=== PATIENT | male | born 1955 | race Caucasian/White ===

== ENCOUNTER 2018-03-08 22:33 | Emergency (ER) | payer OTHER ==
--- NOTE | 2018-03-08 23:30 | EDM.PDOC ---
ED HPI GENERAL MEDICAL PROBLEM - General Chief Complaint: Neurological Problem Stated Complaint: CONFUSION Time Seen by Provider: 03/08/18 23:00 Source of Information: Reports: Patient, Family History Limitations: Reports: No Limitations - History of Present Illness INITIAL COMMENTS - FREE TEXT/NARRATIVE: Brandan was seen at [facility] ED this late pm because of an event at home this evening shortly after retiring to bed. He became restless, agitated, got up to go to the window without appearing to know what or why he was doing this. His answers to simple questions were puzzling, without jibberish or dysarthria. There was no facial asymmetry, lack of coordination, aphasia, or observable weakness. Sxs cleared in about 30 minutes. Upon arrival at the ED, his VSS, no focal neurologic deficits, but some memory impairment to recent events this evening. He was started on Ranitidine 150 mg tabs and Sulfacrate 1 gm tabs earlier today for epigastric pains by PCP. He was taking Prilosec, NSAIDs and Gabapentin for chronic back pain which were stopped today. - Related Data Allergies Allergy/AdvReac Type Severity Reaction Status Date / Time No Known Allergies Allergy Verified 03/08/18 22:55 Home Meds: Home Meds Simvastatin [Zocor] 40 mg PO BEDTIME 06/09/14 [History] Ranitidine HCl [Ranitidine] 150 mg PO BID 03/08/18 [History] Sucralfate 1 gm PO QID 03/08/18 [History] Past Medical History Musculoskeletal History: Reports: Back Pain, Chronic ED ROS GENERAL - Review of Systems Review Of Systems: See Below Constitutional: Reports: No Symptoms HEENT: Reports: No Symptoms Respiratory: Reports: No Symptoms Cardiovascular: Reports: No Symptoms Endocrine: Reports: No Symptoms GI/Abdominal: Reports: No Symptoms : Reports: No Symptoms Musculoskeletal: Reports: Back Pain Skin: Reports: No Symptoms Neurological: Reports: Confusion Psychiatric: Reports: Confusion Hematologic/Lymphatic: Reports: No Symptoms Immunologic: Reports: No Symptoms - Physical Exam Exam: See Below Exam Limited By: No Limitations General Appearance: Alert, WD/WN, No Apparent Distress Eye Exam: Bilateral Eye: EOMI, Normal Inspection, PERRL Ears: Normal External Exam Nose: Normal Inspection Throat/Mouth: Normal Inspection, Normal Lips, Normal Teeth, Normal Gums, Normal Oropharynx, Normal Voice, No Airway Compromise Head Exam: Normocephalic Neck: Normal Inspection, Supple, Full Range of Motion Respiratory/Chest: No Respiratory Distress, Lungs Clear, Normal Breath Sounds, No Accessory Muscle Use Cardiovascular: Normal Peripheral Pulses, Regular Rate, Rhythm, No Murmur GI/Abdominal: Normal Bowel Sounds, Soft, No Organomegaly, No Distention, No Mass , Tender (epigastrium) (Male) Exam: Deferred Rectal (Males) Exam: Deferred Neuro Exam (Abbreviated): Alert, Oriented, CN II-XII Intact, Normal Cognition, Normal Gait, No Motor/Sensory Deficits, Memory Loss Recent Events (impaired to recent events this evening) Back Exam: Normal Inspection Extremities: Normal Inspection, Normal Range of Motion Psychiatric: Normal Affect, Normal Mood Skin Exam: Warm, Dry, Intact, Normal Color Course - Vital Signs Text/Narrative:: Brandan remained stable at the [facility] ED. No meds were administered. Screening labwork and ekg were baseline. Last Recorded V/S: Last Vital Signs Temp Pulse 60 03/08/18 23:30 Resp 16 03/08/18 22:35 BP 161/92 H 03/08/18 23:30 Pulse Ox 98 03/08/18 22:35 - Orders/Labs/Meds Orders: Active Orders 24 hr Category Date Time Status EKG Documentation Completion [RC] ASDIRECTED Care 03/08/18 23:23 Ordered Head wo Cont [CT] Routine Exams 03/09/18 12:00 Ordered EKG 12 Lead [EK] Routine Ther 03/08/18 23:22 Ordered Labs: Laboratory Tests 03/08/18 03/08/18 03/08/18 Range/Units 23:35 23:35 23:35 WBC 6.1 (4.5-12.0) X10-3/uL RBC 4.51 (4.30-5.75) x10(6)uL Hgb 12.8 (11.5-15.5) g/dL Hct 38.8 (30.0-51.3) % MCV 85.9 (80-96) fL MCH 28.3 (27.7-33.6) pg MCHC 33.0 (32.2-35.4) g/dL RDW 13.4 (11.5-15.5) % Plt Count 244 (125-369) X10(3)uL MPV 8.4 (7.4-10.4) fL Neut % (Auto) 54.4 (46-82) % Lymph % (Auto) 33.1 (13-37) % [place] % (Auto) 7.2 (4-12) % Eos % (Auto) 4 (1.0-5.0) % Baso % (Auto) 1 (0-2) % Neut # (Auto) 3.4 (1.6-8.3) # Lymph # (Auto) 2.0 (0.6-5.0) # [place] # (Auto) 0.4 (0.0-1.3) # Eos # (Auto) 0.2 (0.0-0.8) # Baso # (Auto) 0.1 (0.0-0.2) # Sodium 136 (135-145) mmol/L Potassium 3.7 (3.5-5.3) mmol/L Chloride 102 (100-110) mmol/L Carbon Dioxide 30 (21-32) mmol/L BUN 18 (7-18) mg/dL Creatinine 1.2 (0.70-1.30) mg/dL Est Cr Clr Drug Dosing 72.13 mL/min Estimated GFR (MDRD) > 60 (>60) BUN/Creatinine Ratio 15.0 (9-20) Glucose 124 H (80-116) mg/dL Calcium 9.2 (8.6-10.2) mg/dL Total Bilirubin 0.6 (0.1-1.3) mg/dL AST 23 (5-25) IU/L ALT 35 (12-36) U/L Alkaline Phosphatase 99 (56-112) IU/L Troponin I < 0.017 L (<0.017-0.056) ng/mL C-Reactive Protein < 0.2 L (0.5-0.9) mg/dL Total Protein 7.7 (6.0-8.0) g/dL Albumin 3.7 (3.2-4.6) g/dL Globulin 4.0 g/dL Albumin/Globulin Ratio 0.9 Departure - Departure Time of Disposition: 00:08 Disposition: Home, Self-Care 01 Condition: Good Clinical Impression: Confusional state - Discharge Information *PRESCRIPTION DRUG MONITORING PROGRAM REVIEWED*: Not Applicable *COPY OF PRESCRIPTION DRUG MONITORING REPORT IN PATIENT FARNAZ: Not Applicable Referrals: Shanna Maza, [employer] [Primary Care Provider] - Forms: ED Department Discharge - Problem List & Annotations (1) Confusional state SNOMED Code(s): 148519504 Code(s): F44.89 - OTHER DISSOCIATIVE AND CONVERSION DISORDERS Status: Acute Current Visit: Yes Annotation/Comment:: Brandan remains stable at this time. He will be on medical leave tomorrow, and not drive a car until medically cleared. He will stop Ranitidine, continue Sulfacrate, resume Prilosec 20 mg bid , and begin ASA 325 mg qd. He will return to the ED tomorrow for a Head CT noncontrast. - Problem List Review Problem List Initiated/Reviewed/Updated: Yes - My Orders Last 24 Hours: My Active Orders 03/08/18 23:22 EKG 12 Lead [EK] Routine 03/08/18 23:23 EKG Documentation Completion [RC] ASDIRECTED 03/09/18 12:00 Head wo Cont [CT] Routine - Assessment/Plan Last 24 Hours: My Active Orders 03/08/18 23:22 EKG 12 Lead [EK] Routine 03/08/18 23:23 EKG Documentation Completion [RC] ASDIRECTED 03/09/18 12:00 Head wo Cont [CT] Routine Plan: Follow up tomorrow in ED.
[2018-03-09 00:09] VITALS: BP 168/97
== END 2018-03-09 00:23 | disposition home or self-care (01) ==
LOC: FB.ED 22:33
DX: R41.0 Disorientation, unspecified (principal)
CPT/HCPCS: 36415; 80053; 84484; 85025; 86140; 93005; 99285

== ENCOUNTER 2019-05-12 06:36 | Observation (INO) | payer OTHER ==
--- NOTE | 2019-05-12 07:15 | EDM.PDOC ---
ED HPI GENERAL MEDICAL PROBLEM - General Chief Complaint: Gastrointestinal Problem Stated Complaint: bleeding per rectum since yesterday Time Seen by Provider: 05/12/19 07:05 Source of Information: Reports: Patient, Family History Limitations: Reports: No Limitations - History of Present Illness INITIAL COMMENTS - FREE TEXT/NARRATIVE: pt states he started that he started bleeding since yesterday,1/2 a cup 4 times yesterday and same 3times since 4am today has abd pain in the left LLQ. No dizziness , no headache . has had colonoscopy and has once scheduled for May states had no opolyps or diverticulosis Onset: Gradual Onset Date: 05/11/19 Duration: Getting Worse Location: Reports: Abdomen Quality: Reports: Ache, Dull, Other (pain in the rectal area) Severity: Moderate Improves with: Reports: None Worsens with: Reports: None Associated Symptoms: Reports: No Other Symptoms - Related Data Allergies Allergy/AdvReac Type Severity Reaction Status Date / Time .cantalope Allergy Difficulty Uncoded 05/12/19 07:08 Swallowing Home Meds: Home Meds Simvastatin [Zocor] 40 mg PO BEDTIME 06/09/14 [History] Aspirin [Adult Low Dose Aspirin EC] 81 mg PO DAILY 05/12/19 [History] Methocarbamol 1 tab PO TID PRN 05/12/19 [History] Omeprazole 40 mg PO DAILY 05/12/19 [History] Past Medical History Cardiovascular History: Reports: High Cholesterol Gastrointestinal History: Reports: Diverticulosis, GERD Musculoskeletal History: Reports: Back Pain, Chronic - Past Surgical History GI Surgical History: Reports: Cholecystectomy, Colonoscopy, EGD Social & Family History - Tobacco Use Smoking Status *Q: Never Smoker - Caffeine Use Caffeine Use: Reports: None - Recreational Drug Use Recreational Drug Use: No ED ROS GENERAL - Review of Systems Review Of Systems: See Below Constitutional: Reports: Malaise, Weakness HEENT: Reports: No Symptoms Respiratory: Reports: No Symptoms Cardiovascular: Reports: No Symptoms Endocrine: Reports: No Symptoms GI/Abdominal: Reports: Abdominal Pain, Distension : Reports: No Symptoms Musculoskeletal: Reports: No Symptoms Skin: Reports: No Symptoms ED EXAM, GI/ABD - Physical Exam Exam: See Below Exam Limited By: No Limitations General Appearance: Alert, WD/WN, No Apparent Distress Eyes: Bilateral: Abnormal EOM Ears: Normal External Exam Nose: Normal Inspection Throat/Mouth: Normal Inspection Neck: Supple, Non-Tender Respiratory/Chest: Lungs Clear Cardiovascular: Regular Rate, Rhythm GI/Abdominal Exam: Soft, Distended, Tender (in the LLQ), Abnormal Bowel Sounds ( hyperactive). No: Guarding, Rigid, Hernia, Mass, Hepatomegaly, Splenomegaly Rectal (Males) Exam: Heme + Stool, Hemorrhoids Back Exam: Full Range of Motion Extremities: Normal Range of Motion Neurological: Alert, Oriented, CN II-XII Intact Psychiatric: Normal Affect Skin Exam: Warm Course - Vital Signs Text/Narrative:: pt has been stable in ER had BM once ( bm not seen ) but pt states it was still bloody still has pain in the LLQ, no Nausea or vomiting Seen by surgeon and plan is to admit for observation Last Recorded V/S: Last Vital Signs Temp 36.7 C 05/12/19 08:34 Pulse 58 L 05/12/19 08:34 Resp 18 05/12/19 08:34 BP 137/83 05/12/19 08:34 Pulse Ox 99 05/12/19 08:34 - Orders/Labs/Meds Orders: Active Orders 24 hr Category Date Time Status Patient Status Manage Transfer [TRANSFER] Routine ADT 05/12/19 09:56 Active Patient Status [ADT] Routine ADT 05/12/19 09:59 Active Bedrest Bathroom Privileges [RC] ASDIRECTED Care 05/12/19 09:59 Active Intake and Output [RC] QSHIFT Care 05/12/19 10:00 Active Notify Provider Consults [RC] ASDIRECTED Care 05/12/19 07:31 Active Oxygen Therapy [RC] PRN Care 05/12/19 09:59 Active VTE/DVT Education [RC] DAILY Care 05/12/19 09:59 Active Vital Signs [RC] Q4H Care 05/12/19 09:59 Active Consult to Physician [CONS] Stat Cons 05/12/19 07:29 Ordered Clear Liquid Diet [DIET] Diet 05/12/19 Lunch Ordered Abdomen Pelvis w Cont [CT] Stat Exams 05/12/19 08:58 Ordered BASIC METABOLIC PANEL,BMP [CHEM] AM Lab 05/13/19 05:11 Ordered CBC WITH AUTO DIFF [HEME] AM Lab 05/13/19 05:11 Ordered Ondansetron [Zofran] Med 05/12/19 09:59 Active 4 mg IV Q6H PRN Sodium Chloride 0.9% [Normal Saline] 1,000 ml Med 05/12/19 08:45 Active IV ASDIRECTED Sodium Chloride 0.9% [Saline Flush] Med 05/12/19 07:20 Active 10 ml FLUSH ASDIRECTED PRN Antiembolic Hose [OM.PC] Per Unit Routine Oth 05/12/19 10:02 Ordered IV Fluid and Blood Warmer [OM.PC] Routine Oth 05/12/19 07:20 Ordered Peripheral IV Insertion Adult [OM.PC] Routine Oth 05/12/19 07:20 Ordered VTE Pharmacological Contraindications [AST] Per Unit Oth 05/12/19 09:59 Ordered Routine Resuscitation Status Routine Resus Stat 05/12/19 09:59 Ordered Medication Orders Sodium Chloride (Normal Saline) 1,000 mls @ 125 mls/hr IV ASDIRECTED RAMON Last Admin: 05/12/19 08:35 Dose: 125 mls/hr Ondansetron HCl (Zofran) 4 mg IV Q6H PRN PRN Reason: Nausea/Vomiting Sodium Chloride (Saline Flush) 10 ml FLUSH ASDIRECTED PRN PRN Reason: Keep Vein Open Last Admin: 05/12/19 07:15 Dose: 10 ml Labs: Laboratory Tests 05/12/19 05/12/19 05/12/19 Range/Units 07:20 07:20 07:20 WBC 4.7 (4.5-12.0) X10-3/uL RBC 4.56 (4.30-5.75) x10(6)uL Hgb 12.8 L (13.5-17.8) g/dL Hct 39.4 (30.0-51.3) % MCV 86.5 (80-96) fL MCH 28.0 (27.7-33.6) pg MCHC 32.4 (32.2-35.4) g/dL RDW 14.8 (11.5-15.5) % Plt Count 244 (125-369) X10(3)uL MPV 8.0 (7.4-10.4) fL Neut % (Auto) 57.8 (46-82) % Lymph % (Auto) 29.3 (13-37) % [place] % (Auto) 7.4 (4-12) % Eos % (Auto) 5 (1.0-5.0) % Baso % (Auto) 1 (0-2) % Neut # (Auto) 2.8 (1.6-8.3) # Lymph # (Auto) 1.4 (0.6-5.0) # [place] # (Auto) 0.3 (0.0-1.3) # Eos # (Auto) 0.2 (0.0-0.8) # Baso # (Auto) 0.0 (0.0-0.2) # PT 9.9 (8.7-11.1) INR 1.02 (0.89-1.13) Sodium 142 (135-145) mmol/L Potassium 3.8 (3.5-5.3) mmol/L Chloride 104 (100-110) mmol/L Carbon Dioxide 27 (21-32) mmol/L BUN 18 (7-18) mg/dL Creatinine 1.2 (0.70-1.30) mg/dL Est Cr Clr Drug Dosing 70.28 mL/min Estimated GFR (MDRD) > 60 (>60) BUN/Creatinine Ratio 15.0 (9-20) Glucose 103 (80-116) mg/dL Calcium 8.9 (8.6-10.2) mg/dL C-Reactive Protein (0.5-0.9) mg/dL 05/12/19 Range/Units 07:20 WBC (4.5-12.0) X10-3/uL RBC (4.30-5.75) x10(6)uL Hgb (13.5-17.8) g/dL Hct (30.0-51.3) % MCV (80-96) fL MCH (27.7-33.6) pg MCHC (32.2-35.4) g/dL RDW (11.5-15.5) % Plt Count (125-369) X10(3)uL MPV (7.4-10.4) fL Neut % (Auto) (46-82) % Lymph % (Auto) (13-37) % [place] % (Auto) (4-12) % Eos % (Auto) (1.0-5.0) % Baso % (Auto) (0-2) % Neut # (Auto) (1.6-8.3) # Lymph # (Auto) (0.6-5.0) # [place] # (Auto) (0.0-1.3) # Eos # (Auto) (0.0-0.8) # Baso # (Auto) (0.0-0.2) # PT (8.7-11.1) INR (0.89-1.13) Sodium (135-145) mmol/L Potassium (3.5-5.3) mmol/L Chloride (100-110) mmol/L Carbon Dioxide (21-32) mmol/L BUN (7-18) mg/dL Creatinine (0.70-1.30) mg/dL Est Cr Clr Drug Dosing mL/min Estimated GFR (MDRD) (>60) BUN/Creatinine Ratio (9-20) Glucose (80-116) mg/dL Calcium (8.6-10.2) mg/dL C-Reactive Protein < 0.2 L (0.5-0.9) mg/dL Meds: Medications Generic Name Dose Route Start Last Admin Trade Name Freq PRN Reason Stop Dose Admin Sodium Chloride 1,000 mls @ 125 mls/hr 05/12/19 08:45 05/12/19 08:35 Normal Saline IV 125 mls/hr ASDIRECTED RAMON Administration Ondansetron HCl 4 mg 05/12/19 09:59 Zofran IV Q6H PRN Nausea/Vomiting Sodium Chloride 10 ml 05/12/19 07:20 05/12/19 07:15 Saline Flush FLUSH 10 ml ASDIRECTED PRN Administration Keep Vein Open Discontinued Medications Generic Name Dose Route Start Last Admin Trade Name Freq PRN Reason Stop Dose Admin Sodium Chloride 1,000 mls @ 999 mls/hr 05/12/19 07:20 05/12/19 07:30 Normal Saline IV 05/12/19 08:20 999 mls/hr .BOLUS ONE Administration Departure - Departure Time of Disposition: 10:00 Disposition: Refer to Observation Clinical Impression: Abdominal pain, Bleeding, Bleeding gastrointestinal, LLQ pain - Discharge Information *PRESCRIPTION DRUG MONITORING PROGRAM REVIEWED*: Not Applicable *COPY OF PRESCRIPTION DRUG MONITORING REPORT IN PATIENT FARNAZ: Not Applicable Referrals: Haleigh Rahman, ANALYTICS [employer]OCIATE [Primary Care Provider] - Forms: ED Department Discharge - Problem List & Annotations (1) Bleeding gastrointestinal SNOMED Code(s): 49076827 Code(s): K92.2 - GASTROINTESTINAL HEMORRHAGE, UNSPECIFIED Status: Acute Current Visit: Yes (2) LLQ pain SNOMED Code(s): 175664275 Code(s): R10.32 - LEFT LOWER QUADRANT PAIN Status: Acute Current Visit: Yes (3) Abdominal pain SNOMED Code(s): 58265001 Code(s): R10.9 - UNSPECIFIED ABDOMINAL PAIN Status: Acute Current Visit: Yes (4) Bleeding SNOMED Code(s): 116874052 Code(s): R58 - HEMORRHAGE, NOT ELSEWHERE CLASSIFIED Status: Acute Current Visit: Yes - My Orders Last 24 Hours: My Active Orders 05/12/19 07:20 Sodium Chloride 0.9% [Saline Flush] 10 ml FLUSH ASDIRECTED PRN IV Fluid and Blood Warmer [OM.PC] Routine Peripheral IV Insertion Adult [OM.PC] Routine 05/12/19 07:29 Consult to Physician [CONS] Stat 05/12/19 07:31 Notify Provider Consults [RC] ASDIRECTED 05/12/19 08:45 Sodium Chloride 0.9% [Normal Saline] 1,000 ml IV ASDIRECTED 05/12/19 08:58 Abdomen Pelvis w Cont [CT] Stat 05/12/19 09:56 Patient Status Manage Transfer [TRANSFER] Routine 05/12/19 09:59 Patient Status [ADT] Routine Bedrest Bathroom Privileges [RC] ASDIRECTED Oxygen Therapy [RC] PRN VTE/DVT Education [RC] DAILY Vital Signs [RC] Q4H Ondansetron [Zofran] 4 mg IV Q6H PRN VTE Pharmacological Contraindications [AST] Per Unit Routine Resuscitation Status Routine 05/12/19 10:00 Intake and Output [RC] QSHIFT 05/12/19 10:02 Antiembolic Hose [OM.PC] Per Unit Routine 05/12/19 Lunch Clear Liquid Diet [DIET] 05/13/19 05:11 BASIC METABOLIC PANEL,BMP [CHEM] AM CBC WITH AUTO DIFF [HEME] AM - Assessment/Plan Last 24 Hours: My Active Orders 05/12/19 07:20 Sodium Chloride 0.9% [Saline Flush] 10 ml FLUSH ASDIRECTED PRN IV Fluid and Blood Warmer [OM.PC] Routine Peripheral IV Insertion Adult [OM.PC] Routine 05/12/19 07:29 Consult to Physician [CONS] Stat 05/12/19 07:31 Notify Provider Consults [RC] ASDIRECTED 05/12/19 08:45 Sodium Chloride 0.9% [Normal Saline] 1,000 ml IV ASDIRECTED 05/12/19 08:58 Abdomen Pelvis w Cont [CT] Stat 05/12/19 09:56 Patient Status Manage Transfer [TRANSFER] Routine 05/12/19 09:59 Patient Status [ADT] Routine Bedrest Bathroom Privileges [RC] ASDIRECTED Oxygen Therapy [RC] PRN VTE/DVT Education [RC] DAILY Vital Signs [RC] Q4H Ondansetron [Zofran] 4 mg IV Q6H PRN VTE Pharmacological Contraindications [AST] Per Unit Routine Resuscitation Status Routine 05/12/19 10:00 Intake and Output [RC] QSHIFT 05/12/19 10:02 Antiembolic Hose [OM.PC] Per Unit Routine 05/12/19 Lunch Clear Liquid Diet [DIET] 05/13/19 05:11 BASIC METABOLIC PANEL,BMP [CHEM] AM CBC WITH AUTO DIFF [HEME] AM
[2019-05-12] MEDS ORDERED: Sodium Chloride 0.9% 1,000 ML IV ONE (07:20)
[2019-05-12] MEDS ORDERED: Sodium Chloride 0.9% 10 ML Syringe FLUSH PRN (07:20)
[2019-05-12] MEDS ORDERED: Sodium Chloride 0.9% 1,000 ML IV SCH (08:45)
[2019-05-12] MEDS ORDERED: Ondansetron 4 MG/2 ML SDV IV PRN (09:59)
[2019-05-12] MEDS ORDERED: Diatrizoate Meglumine/Diatrizoate Sodium 37% 30 ML Bottle PO ONE (10:50)
[2019-05-12] MEDS ORDERED: Iopamidol 755 MG/ML 150 ML Bottle IV ONE (10:50)
--- NOTE | 2019-05-12 13:05 | PCM.PN ---
- General Info Date of Service: 05/12/19 Functional Status: Reports: Pain Controlled - Review of Systems General: Reports: No Symptoms Gastrointestinal: Reports: No Symptoms, Other (Had 2 non-bloody stools) - Patient Data Vitals - Most Recent: Last Vital Signs Temp 97.7 F 05/12/19 10:21 Pulse 61 05/12/19 10:21 Resp 18 05/12/19 10:21 BP 156/101 H 05/12/19 10:21 Pulse Ox 99 05/12/19 10:21 Weight - Most Recent: 104.071 kg Lab Results Last 24 Hours: Laboratory Results - last 24 hr 05/12/19 05/12/19 05/12/19 Range/Units 07:20 07:20 07:20 WBC 4.7 (4.5-12.0) X10-3/uL RBC 4.56 (4.30-5.75) x10(6)uL Hgb 12.8 L (13.5-17.8) g/dL Hct 39.4 (30.0-51.3) % MCV 86.5 (80-96) fL MCH 28.0 (27.7-33.6) pg MCHC 32.4 (32.2-35.4) g/dL RDW 14.8 (11.5-15.5) % Plt Count 244 (125-369) X10(3)uL MPV 8.0 (7.4-10.4) fL Neut % (Auto) 57.8 (46-82) % Lymph % (Auto) 29.3 (13-37) % [place] % (Auto) 7.4 (4-12) % Eos % (Auto) 5 (1.0-5.0) % Baso % (Auto) 1 (0-2) % Neut # (Auto) 2.8 (1.6-8.3) # Lymph # (Auto) 1.4 (0.6-5.0) # [place] # (Auto) 0.3 (0.0-1.3) # Eos # (Auto) 0.2 (0.0-0.8) # Baso # (Auto) 0.0 (0.0-0.2) # PT 9.9 (8.7-11.1) INR 1.02 (0.89-1.13) Sodium 142 (135-145) mmol/L Potassium 3.8 (3.5-5.3) mmol/L Chloride 104 (100-110) mmol/L Carbon Dioxide 27 (21-32) mmol/L BUN 18 (7-18) mg/dL Creatinine 1.2 (0.70-1.30) mg/dL Est Cr Clr Drug Dosing 70.28 mL/min Estimated GFR (MDRD) > 60 (>60) BUN/Creatinine Ratio 15.0 (9-20) Glucose 103 (80-116) mg/dL Calcium 8.9 (8.6-10.2) mg/dL C-Reactive Protein (0.5-0.9) mg/dL 05/12/19 Range/Units 07:20 WBC (4.5-12.0) X10-3/uL RBC (4.30-5.75) x10(6)uL Hgb (13.5-17.8) g/dL Hct (30.0-51.3) % MCV (80-96) fL MCH (27.7-33.6) pg MCHC (32.2-35.4) g/dL RDW (11.5-15.5) % Plt Count (125-369) X10(3)uL MPV (7.4-10.4) fL Neut % (Auto) (46-82) % Lymph % (Auto) (13-37) % [place] % (Auto) (4-12) % Eos % (Auto) (1.0-5.0) % Baso % (Auto) (0-2) % Neut # (Auto) (1.6-8.3) # Lymph # (Auto) (0.6-5.0) # [place] # (Auto) (0.0-1.3) # Eos # (Auto) (0.0-0.8) # Baso # (Auto) (0.0-0.2) # PT (8.7-11.1) INR (0.89-1.13) Sodium (135-145) mmol/L Potassium (3.5-5.3) mmol/L Chloride (100-110) mmol/L Carbon Dioxide (21-32) mmol/L BUN (7-18) mg/dL Creatinine (0.70-1.30) mg/dL Est Cr Clr Drug Dosing mL/min Estimated GFR (MDRD) (>60) BUN/Creatinine Ratio (9-20) Glucose (80-116) mg/dL Calcium (8.6-10.2) mg/dL C-Reactive Protein < 0.2 L (0.5-0.9) mg/dL Med Orders - Current: Current Medications Sodium Chloride (Normal Saline) 1,000 mls @ 125 mls/hr IV ASDIRECTED RAMON Last Admin: 05/12/19 08:35 Dose: 125 mls/hr Ondansetron HCl (Zofran) 4 mg IV Q6H PRN PRN Reason: Nausea/Vomiting Sodium Chloride (Saline Flush) 10 ml FLUSH ASDIRECTED PRN PRN Reason: Keep Vein Open Last Admin: 05/12/19 07:15 Dose: 10 ml Discontinued Medications Diatrizoate Meglum/Diatrizoate Sod (Gastrografin 37%) 30 ml PO . DIRECTED ONE Stop: 05/12/19 10:51 Last Admin: 05/12/19 11:07 Dose: 30 ml Sodium Chloride (Normal Saline) 1,000 mls @ 999 mls/hr IV .BOLUS ONE Stop: 05/12/19 08:20 Last Admin: 05/12/19 07:30 Dose: 999 mls/hr Iopamidol (Isovue-370 (76%)) 150 ml IV ONETIME ONE Stop: 05/12/19 10:51 Last Admin: 05/12/19 11:07 Dose: 117 ml - Exam General: Alert, Oriented GI/Abdominal Exam: Non-Tender - Problem List Review Problem List Initiated/Reviewed/Updated: Yes - My Orders Last 24 Hours: My Active Orders 05/12/19 12:51 HGB [HEMOGLOBIN] [HEME] Routine - Assessment Assessment:: Lower GI Bleed appears to have stopped - Plan Plan:: Will recheck Hgb and start po Will discharge later today if stable
--- NOTE | 2019-05-12 13:31 | CT ---
INDICATION: GI bleed - blood in stool/abdominal pain for three weeks. CT ABDOMEN AND PELVIS WITH CONTRAST: Spiral 3.75 mm axial sections were obtained through the abdomen and pelvis with oral and IV contrast (119 mL Isovue 370 at 3 mL/second), with sagittal and coronal reconstructions, 05/12/19 , and compared with 03/03/08. Total exam DLP = 1,224.20 mGy-cm. There is again noted some fibrotic change at the right lower lobe at the lung base and minimally in the lingula. The heart did not appear enlarged. No pericardial effusion was seen. Coronary artery calcifications are suggested. The gallbladder is absent, compatible with history of its removal. Clips are noted at the cystic duct. The liver, spleen, pancreas, adrenal glands, and kidneys appear to be normal. No retroperitoneal mass was identified. There are some minimal calcifications in the abdominal aorta without evidence of aneurysm. Urinary bladder was slightly distended but otherwise unremarkable. Prostate was somewhat prominent , measuring 48 x 43 x 35 mm in transverse, AP, and craniocaudad diameters. A minimal left inguinal hernia, including only fat, is noted. No ventral hernia was seen. The appendix appeared normal, visualized on axial images #79 through #90. Degenerative changes and disk disease are noted in the L2 through S1 spine, most severe at L4-5. Hypertrophic lipping is most severe at L3-4, L4-5, and L5- S1. A minimal dextroconcave scoliosis is also noted at the lower middle lumbar spine. No evidence of free air or obstruction was identified. The possibility of thickening of the gastric wall is a consideration but certainly is not definite , due to lack of distention. No organomegaly, mass lesions, or free fluid collections were noted in the abdomen or pelvis. Minimal sigmoid diverticulosis is suggested without evidence of diverticulitis. IMPRESSION: 1. Cannot exclude some thickening of the gastric wall, which could also be on the basis of the stomach being almost empty - correlate clinically. Additional workup may be warranted, depending upon clinical correlation. 2. Prominent prostate with slightly prominent urinary bladder. 3. Minimal sigmoid diverticulosis noted without evidence of diverticulitis. 4. Mild ASD. 5. Degenerative changes and disk disease lumbosacral spine. 6. Post cholecystectomy. 7. Minimal left inguinal hernia, including only fat. Report was called to Dr. Hassan soon after the examination was completed on . [facility]
--- NOTE | 2019-05-12 16:07 | CONS ---
DATE OF CONSULTATION: 05/12/2019 HISTORY OF PRESENT ILLNESS: This 64-year-old gentleman presented to the emergency room this morning for GI bleed. He was seen by Dr. Brnadt in the emergency room. He started having bright red blood per rectum yesterday and continued through the morning. He has had a few episodes of significant amounts. He has not described any lightheadedness or hypotension symptoms. He does have a history of diverticulosis and had a colonoscopy 5 years ago for this. He is due for repeat colonoscopy next month. He does complain of some diffuse cramping abdominal pain but not localized. He denies any fever, sweats, or chills. Had been feeling fine prior to yesterday. Laboratory evaluation reveals a stable hemoglobin of 12.8, which is unchanged from last year. Other labs are normal. PHYSICAL EXAMINATION: GENERAL: Reveals a pleasant gentleman in no acute distress. VITAL SIGNS: Reviewed and within normal limits. SKIN: [place], warm, and dry. ABDOMEN: Soft with minimal diffuse tenderness. There is no localization. No masses or hernias are palpable. Anoscopic exam was performed by Dr. Brandt and no blood or stool was present in the rectal vault. ASSESSMENT: 1. Lower gastrointestinal bleed. 2. Sigmoid diverticulosis. PLAN: It appears that this would be a self-limited episode of bleeding likely from diverticulosis. He will be hospitalized for observation to ensure that the bleeding has subsided. He will be scheduled for colonoscopy in the near future for further evaluation. /[id number]
[2019-05-12 16:50] VITALS: BP 148/93; PULSE 78
== END 2019-05-12 17:20 | disposition home or self-care (01) ==
LOC: FB.ED 06:36 → FB.MS 09:56
PROVIDERS: ADMIT Family Medicine; ATTEND Surgery
DX: K57.31 Diverticulosis of large intestine without perforation or abscess with bleeding (principal); E78.00 Pure hypercholesterolemia, unspecified; Z91.018 Allergy to other foods; Z79.82 Long term (current) use of aspirin; Z79.899 Other long term (current) drug therapy
CPT/HCPCS: 36415; 74177; 80048; 85018; 85025; 85610; 86140; 96360; 96361; 99285-25; G0378; J7030; Q9963; Q9967

== ENCOUNTER 2020-07-24 06:25 | Day surgery (SDC) | payer OTHER ==
[2020-07-24] MEDS ORDERED: Midazolam 1 MG/ML 2 ML SDV IV ONE (06:26)
[2020-07-24] MEDS ORDERED: fentaNYL 100 MCG/2 ML SDV IV ONE (06:26)
[2020-07-24] MEDS ORDERED: Ketamine 500 mg/10 ML MDV IV ONE (06:26)
[2020-07-24] MEDS ORDERED: Propofol 200 MG/20 ML SDV IV ONE (06:26)
[2020-07-24] MEDS ORDERED: Ketorolac 30 MG/ML SDV IVPUSH ONE (06:26)
[2020-07-24] MEDS ORDERED: Lactated Ringers 1,000 ML IV SCH (06:45)
[2020-07-24] MEDS ORDERED: Sodium Chloride 0.9% 10 ML Syringe FLUSH PRN (06:45)
--- NOTE | 2020-07-24 08:17 | PCM.HP.2 ---
H&P History of Present Illness - General Date of Service: 07/24/20 Admit Problem/Dx: Admission Diagnosis/Problem Admission Diagnosis/Problem Carpal tunnel syndrome of left wrist Source of Information: Patient, Old Records History Limitations: Reports: No Limitations - History of Present Illness Initial Comments - Free Text/Narative: Here for left carpal tunnel release Duration of Symptoms: Reports: Getting Worse (over the past several months) Location: Reports: Upper Extremity, Left - Related Data Allergies/Adverse Reactions: Allergies Allergy/AdvReac Type Severity Reaction Status Date / Time .cantalope Allergy Difficulty Uncoded 07/24/20 07:15 Swallowing Home Medications: Home Meds Omeprazole 40 mg PO DAILY 05/12/19 [History] Rosuvastatin [Crestor] 20 mg PO BEDTIME 05/12/19 [History] Ammonium Lactate [Amlactin 12% Lotion] 1 applic TOP BID 07/23/20 [History] Aspirin [Halfprin] 81 mg PO DAILY 07/23/20 [History] Metaxalone 800 mg PO TID PRN 07/23/20 [History] traMADol [Ultram] 50 mg PO Q12HR PRN 07/23/20 [History] Past Medical History Cardiovascular History: Reports: High Cholesterol Gastrointestinal History: Reports: Diverticulosis, GERD Musculoskeletal History: Reports: Arthritis, Back Pain, Chronic, Osteoarthritis Other Musculoskeletal History: METATARSALGIA OF BOTH FEET, FACET ARTHROPATHY, SACROILIAC JOINT PAIN, OSTEOARTHRITIS RIGHT KNEE Dermatologic History: Reports: Other (See Below) Other Dermatologic History: ACQUIRED KERATODERMA - Past Surgical History GI Surgical History: Reports: Cholecystectomy, Colonoscopy, EGD Musculoskeletal Surgical History: Reports: Other (See Below) Other Musculoskeletal Surgeries/Procedures:: back surgery in 1988 Social & Family History - Family History Cardiac: Reports: Heart Failure Respiratory: Reports: None GI: Reports: None : Reports: None - Tobacco Use Tobacco Use Status *Q: Never Tobacco User - Caffeine Use Caffeine Use: Reports: Coffee - Recreational Drug Use Recreational Drug Use: No H&P Review of Systems - Review of Systems: Review Of Systems: Comprehensive ROS is negative, except as noted in HPI. Exam - Exam Exam: See Below - Vital Signs Vital Signs: Last Vital Signs Temp 97.8 F 07/24/20 07:34 Pulse 81 07/24/20 07:34 Resp 16 01/05/21 07:34 BP 131/87 07/24/20 07:34 Pulse Ox 98 07/24/20 07:34 Weight: 106.1 kg - Exam General: Alert, Oriented Lungs: Clear to Auscultation, Normal Respiratory Effort Cardiovascular: Regular Rate, Regular Rhythm Sepsis Event Note - Focused Exam Vital Signs: Vital Signs Temp Pulse Resp BP Pulse Ox 07/24/20 07:34 97.8 F 81 16 131/87 98 Problem List Initiated/Reviewed/Updated: Yes Orders Last 24hrs: Active Orders 24 hr Category Date Time Status Patient Status [ADT] Routine ADT 07/24/20 06:45 Active Patient to Empty Bladder [RC] ASDIRECTED Care 07/24/20 06:45 Active Verify Patient Consent Obtain [RC] ASDIRECTED Care 07/24/20 06:45 Active Nothing Per Oral Diet [DIET] Diet 07/23/20 Dinner Ordered Lactated Ringers [Ringers, Lactated] 1,000 ml Med 07/24/20 06:45 Active IV ASDIRECTED Sodium Chloride 0.9% [Saline Flush] Med 07/24/20 06:45 Active 10 ml FLUSH ASDIRECTED PRN Peripheral IV Insertion Adult [OM.PC] Routine Oth 07/24/20 06:45 Ordered Resuscitation Status Routine Resus Stat 07/23/20 11:44 Ordered Medication Orders Lactated Ringer's (Ringers, Lactated) 1,000 mls @ 125 mls/hr IV ASDIRECTED [facility] Last Admin: 07/24/20 07:17 Dose: 125 mls/hr Documented by: FRIEAUG Sodium Chloride (Saline Flush) 10 ml FLUSH ASDIRECTED PRN PRN Reason: Keep Vein Open Assessment/Plan Comment:: Left Carpal [place] Syndrome Ok to proceed with surgery, risks and complications reviewed, consent obtained
[2020-07-24] MEDS ORDERED: Lidocaine 1% 20 ML MDV INJECT ONE (08:26)
--- NOTE | 2020-07-24 08:57 | PCM.OPNOTE ---
- General Post-Op/Procedure Note Operative Procedure(s): L CTR Pre Op Diagnosis: L CTS Post-Op Diagnosis: Same Anesthesia Technique: Local, MAC Primary Surgeon: Jens ELIAS in mLs: 0 Complications: None Condition: Good
[2020-07-24 09:27] VITALS: BP 120/82; PULSE 68
--- NOTE | 2020-07-24 09:44 | OR ---
DATE OF OPERATION: 07/24/2020 SURGEON: Jens Hassan MD PREOPERATIVE DIAGNOSIS: Left carpal tunnel syndrome. POSTOPERATIVE DIAGNOSIS: Left carpal tunnel syndrome. PROCEDURE: Left carpal tunnel release. ANESTHESIA: Local MAC. PROCEDURE IN DETAIL: The patient was brought to the operating room, where his left hand and forearm were exsanguinated and tourniquet inflated. Hand was prepped and draped sterilely. 4 mL of 1% lidocaine was then used to infiltrate the palmar crease. Routine carpal tunnel incision was made above the ligament and extended through the subcutaneous tissue and palmar aponeurosis. Transverse carpal ligament was identified and sharply incised until the median nerve was visible. The ligament was then split distally into the palm, then proximally into the wrist. Finger palpation and inspection revealed all constricting bands we released. Wound was irrigated and skin closed with interrupted 4-0 Prolene vertical mattress sutures. Antibiotic ointment and a bulky sterile pressure dressing were applied. The patient tolerated the procedure well. Estimated blood loss was none. He returned to postanesthesia in stable condition. /[id number]
== END 2020-07-24 09:35 | disposition home or self-care (01) ==
LOC: FB.SDS 06:25
PROVIDERS: ATTEND Surgery
DX: G56.02 Carpal tunnel syndrome, left upper limb (principal); E78.00 Pure hypercholesterolemia, unspecified; K21.9 Gastro-esophageal reflux disease without esophagitis; E78.5 Hyperlipidemia, unspecified; M47.816 Spondylosis without myelopathy or radiculopathy, lumbar region; G89.29 Other chronic pain; Z88.8 Allergy status to other drugs, medicaments and biological substances; Z79.899 Other long term (current) drug therapy; Z79.82 Long term (current) use of aspirin; Z98.890 Other specified postprocedural states; Z90.49 Acquired absence of other specified parts of digestive tract
CPT/HCPCS: 01810-QZ; J1885; J2001; J2250; J2704; J3010; J7120

== ENCOUNTER 2022-10-01 21:31 | Emergency (ER) | payer OTHER ==
[2022-10-01 21:39] VITALS: BP 132/77; PULSE 66
[2022-10-01] MEDS: Ketorolac 30 MG/ML SDV IM ONE (22:08)
[2022-10-01] MEDS: Acetaminophen/HYDROcodone 325-5 MG Tab PO ONE (22:11)
[2022-10-01] MEDS: Cyclobenzaprine 10 MG Tab PO ONE (22:14)
== END 2022-10-01 22:47 | disposition home or self-care (01) ==
LOC: FB.ED 21:31
DX: M54.12 Radiculopathy, cervical region (principal); E78.00 Pure hypercholesterolemia, unspecified; K21.9 Gastro-esophageal reflux disease without esophagitis; Z88.8 Allergy status to other drugs, medicaments and biological substances; Z79.82 Long term (current) use of aspirin; Z79.899 Other long term (current) drug therapy
CPT/HCPCS: 96372; 99283; A9270; J1885